=== PATIENT | female | born 1990 | race Caucasian/White ===

== ENCOUNTER 2022-06-15 13:25 | Emergency (ER) | payer BC ==
[~2022-06-15] VITALS: Ht 157.5 cm; Wt 56.7 kg
--- NOTE | 2022-06-15 13:42 | NUR ---
Patient seen by doctor and educated about ultrasound imaging studiy and how long it will take. All questions answered
[2022-06-15 13:57] LABS: HEMATOCRIT 35.3 % (31.2-41.9); MEAN CORPUSCULAR HEMOGLOBIN 31.3 uug (24.7-32.8); MEAN CORPUSCULAR VOLUME 92.4 fL (75.5-95.3); PLATELET COUNT (AUTO) 219 K/uL (179-408)
[2022-06-15 14:29] LABS: *BILIRUBIN,URIN NEGATIVE (NEGATIVE); *BLOOD, URINE 1+ (NEGATIVE); *CLARITY,URINE CLEAR (CLEAR); *COLOR,URINE YELLOW (YELLOW); *KETONES,URINE NEGATIVE (NEGATIVE); *UROBILINOGEN,URINE 0.2 E.U./dl (NORMAL); LEUKOCYTE ESTERASE ,URINE NEGATIVE (NEGATIVE); NITRITE, URINE NEGATIVE (NEGATIVE); UGLUCOSE NEGATIVE (NEGATIVE)
[2022-06-15 14:33] VITALS: BP 122/81
[2022-06-16 00:08] LABS: BACTERIA,URINE NONE SEEN /HPF (NONE SEEN); SQUAMOUS EPITHELIAL CELL,UR FEW /HPF (NONE SEEN); WBC,URINE 0-3 /HPF (0-3)
== END 2022-06-15 14:38 | disposition home or self-care (01) ==
LOC: ER 13:25
DX: O20.8 Other hemorrhage in early pregnancy (principal); R10.2 Pelvic and perineal pain; Z3A.12 12 weeks gestation of pregnancy
CPT/HCPCS: 36415; 76856; 85025; 86850; 86900; 86901; A4663

== ENCOUNTER 2022-07-01 11:54 | Emergency (ER) | payer BC ==
[~2022-07-01] VITALS: Ht 157.5 cm; Wt 58.1 kg
--- NOTE | 2022-07-01 12:13 | NUR ---
PT IS IN ROOM #2A. DR RAY EVALUATED THE PT.
--- NOTE | 2022-07-01 12:35 | NUR ---
PT WAS D/C'd TO HOME. D/C INSTRUCTIONS GIVEN TO THE PT BY DR RAY.
[2022-07-01 12:43] VITALS: BP 130/68
== END 2022-07-01 12:44 | disposition home or self-care (01) ==
LOC: ER 12:03
DX: O26.892 Other specified pregnancy related conditions, second trimester (principal); R07.89 Other chest pain; Z3A.14 14 weeks gestation of pregnancy
CPT/HCPCS: A4663